=== PATIENT | female | born 1955 | race Caucasian/White ===

== ENCOUNTER → 2017-01-08 | Day surgery (SDC) | payer MEDICAID ==
[~2017-01-08] VITALS: Ht 147.3 cm; Wt 86.2 kg
[~2017-01-08] MED LIST: AMLODIPINE BESY10 MG PO; ASPIRIN ADULT L81 M2 PO; GABAPENTIN100 M2 PO; LISINOPRIL20 MG PO; METFORMIN1000 MG PO; NIASPAN500 MG PO; NORCO 5-325 TA1 EACH PO; OYSTER SHELL 51 EACH PO; PENICILLIN VK500 MG PO; PRILOSEC20 M1 PO; RISPERIDONE1 M1 PO; SIMVASTATIN20 MG PO; TIZANIDINE2 MG PO; VICTOZA 3-PAK6 MG/ML SC; VITAMIN D2400 UNIT PO
--- NOTE | ~2017-01-08 | O ---
[place], [place] OPERATIVE NOTE NAME: MICHELLE JARAMILLO UNIT #: [id number] ROOM: DOCTOR: THERON WATKINS DMD BIRTHDATE: [birth year] DOS: PREOPERATIVE DIAGNOSES: Caries, periodontal disease and anxiety. POSTOPERATIVE DIAGNOSES: Caries, periodontal disease and anxiety. ANESTHESIA: General anesthesia with endotracheal intubation. FLUIDS: Minimal. ESTIMATED BLOOD LOSS: Minimal. COMPLICATIONS: None. CONDITION: To PACU, stable. DESCRIPTION OF PROCEDURE: The patient was brought to the OR and placed in supine position. IV and EKG lines were placed. Endotracheal intubation and general anesthesia was administered. The patient was prepped and draped for oral procedures. Risks and benefits were explained to the patient and the patient's sister prior to surgery. Clinical exam and x-rays taken determined nonrestorable maxillary and mandibular dentition. PROCEDURES PERFORMED: Complete extraction of teeth #1, 2, 8, 9, 14, 15, 16, 20, 21, 22, 23, 24, 25, 26, 27, 28, 29. Full thickness flaps in all 4 quadrants with moderate bone removal. Sutured with 4-0 Vicryl. Lavaged x 2. Throat pack removed. The patient left the OR in good condition and went to PACU. THERON WATKINS DMD CM:OPRECORD:OPERATIVE NOTE [id number] THERON WATKINS DMD 01/10/17 1728 interface
[2017-01-08 06:30] VITALS: BP 152/83
[2017-01-08 06:48] LABS: BASO % 0.4 % (0.0-1.0); EOS # 0.1 10*3/uL (0.0-0.4); EOS % 1.2 % (1.0-4.0); HEMATOCRIT 40.2 % (37.0-47.0); LYMPH # 2.7 10*3/uL (1.3-4.4); MEAN CELL VOLUME 95.9 fl (81.0-99.0); MEAN CORPUSCULAR HGB CONC 32.3 g/dl (33.0-37.0); MEAN PLATELET VOLUME 9.2 fl (9.6-12.3); MONO # 0.7 10*3/uL (0.1-1.0); MONO % 6.9 % (3.0-9.0); NEUT % 63.2 % (47.0-73.0); PLATELET COUNT AUTOMATED 295 10*3/uL (130-400); RED BLOOD COUNT 4.19 10*6/uL (4.10-5.10); RED CELL DISTRI WIDTH 12.9 % (0-14.5); WHITE BLOOD COUNT 9.5 10*3/uL (4.8-10.8)
[2017-01-08 06:59] LABS: POTASSIUM 3.5 mmol/L (3.5-5.1)
--- NOTE | 2017-01-08 07:29 | NUR ---
CLIENT REMAINS ANXIOUS, CRYING AT TIMES. MEDICATED WITH A SECOND DOSE OF VERSED PER PRN ORDER
--- NOTE | 2017-01-08 07:33 | NUR ---
CLIENT TO SURGERY. FOLLOW UP ASSESSMENT REGARDING EFFECTIVENESS OF VERSED NOT DONE AT THIS TIME
[2017-01-08 08:46] VITALS: BP 96/47
[2017-01-08 09:01] VITALS: BP 123/73
[2017-01-08 09:16] VITALS: BP 130/78
[2017-01-08 09:31] VITALS: BP 130/78
[2017-01-08 09:43] VITALS: BP 130/78
== END | disposition home or self-care (01) ==
LOC: SDC 01-02 11:00
PROVIDERS: Anesthesiology
DX: K02.9 Dental caries, unspecified (principal); K05.6 Periodontal disease, unspecified; F41.9 Anxiety disorder, unspecified; E11.9 Type 2 diabetes mellitus without complications; I10 Essential (primary) hypertension; Z86.73 Personal history of transient ischemic attack (TIA), and cerebral infarction without residual deficits